=== PATIENT | male | born 1985 | race Two or more races ===

== ENCOUNTER 2021-01-26 15:07 | Emergency (ER) | payer BC, OTHER ==
[~2021-01-26] VITALS: Ht 165.1 cm; Wt 97.5 kg
[2021-01-26 16:20] VITALS: BP 112/79
== END 2021-01-26 16:35 | disposition home or self-care (01) ==
LOC: ER 15:07
DX: S33.5XXA Sprain of ligaments of lumbar spine, initial encounter (principal); J45.909 Unspecified asthma, uncomplicated; X50.1XXA Overexertion from prolonged static or awkward postures, initial encounter; Y93.89 Activity, other specified; Y92.89 Other specified places as the place of occurrence of the external cause; Y99.8 Other external cause status
CPT/HCPCS: 72100